=== PATIENT | female | born 1990 | race Caucasian/White ===

== ENCOUNTER 2020-08-02 14:49 | Emergency (ER) | payer OTHER, SELFPAY ==
--- NOTE | 2020-08-02 14:52 | ED.GENADULT ---
HPI - General Adult General Chief complaint: Skin/Abscess/Foreign Body Stated complaint: breast pain Time Seen by Provider: 08/02/20 14:52 Source: patient and RN notes reviewed History of Present Illness HPI narrative: Patient is a 29-year-old female who presents the urgent care with complaints of left breast pain and swelling. Patient states that it started 2 days ago and she has now been running a low-grade fever. Patient denies of any use of [id number] medication. Patient has not used a cool or heat pack to the breast. Patient states she has breast-fed in the past and never had issues with clogged duct or mastitis. Patient states that her daughter has been breast-feeding for the last 3 months without any issues. Patient states that it is more painful when pumping. No other acute complaints. No acute distress noted. Patient aware of the plan of care. Some parts of this dictation were generated by voice recognition software and may contain typographical and/or grammatical inaccuracies. Related Data Allergies Allergy/AdvReac Type Severity Reaction Status Date / Time Sulfa (Sulfonamide Allergy Unknown unknown to Verified 06/29/19 10:40 Antibiotics) pt Review of Systems Review of Systems: Narrative: CONSTITUTIONAL: Denies fever, chills, or sweats. EYES: Denies visual changes, redness, or discharge. ENT: Denies rhinorrhea, congestion, sore throat, or otalgia. CARDIOVASCULAR: Denies chest pain, palpitations, or edema. RESPIRATORY: Denies cough or dyspnea. GASTROINTESTINAL: Denies abdominal pain, nausea, vomiting, or diarrhea. GENITOURINARY: Denies dysuria or hematuria. SKIN: Reports of left breast pain and swelling. Denies rash or itching. MUSCULOSKELETAL: Denies back pain, joint pain, or myalgia. NEUROLOGIC: Denies headache, numbness, or weakness. All other systems reviewed are negative, except as documented in HPI. [facility] Family History Family History Grandparent Diabetes mellitus Family history of cardiovascular disease Mother Hypertension Carcinoma of colon Family history of malignant neoplasm of breast in first degree relative Other Depression Family history of malignant neoplasm of breast Social History Social History Smoking status: Never smoker Alcohol intake: current Comments At the time of my signature, I reviewed and agree with the nursing past medical, surgical, social, and family history. There is no relevant family history pertinent to the patient complaint. Exam Narrative: Exam Narrative: GENERAL: This is a well-nourished, well-developed patient, in no apparent distress. HEAD: normocephalic, atraumatic. EYES: PERRL. Sclera clear/white. Vision is grossly intact. EARS: External ears normal NOSE: External nose normal with no obvious nasal discharge, nares without redness, no rhinorrhea. THROAT: Mucous membranes moist NECK: Neck supple SKIN: 3 x 3 cm area of redness and mild tenderness at approximately 10:00 above the left nipple. No obvious clogged duct. Mild to moderate firmness at the 10:00 region. Good texture and turgor. NEURO: awake, alert, and oriented to person, place and time. There were no obvious focal neurologic abnormalities. EXTREMITIES: No clubbing, cyanosis, or edema. No joint tenderness, effusion, or edema noted. Course Vital Signs Vital signs: Vital Signs Temperature 98.1 F 08/02/20 14:57 Pulse Rate 93 08/02/20 14:57 Respiratory Rate 12 08/02/20 14:57 Blood Pressure 97/81 L 08/02/20 14:57 Pulse Oximetry 100 08/02/20 14:57 Temperature 98.1 F 08/02/20 14:58 Pulse Rate 93 08/02/20 14:58 Respiratory Rate 12 08/02/20 14:58 Blood Pressure 97/81 L 08/02/20 14:58 Pulse Oximetry 100 08/02/20 14:58 Reviewed Medical Decision Making MDM Narrative Medical decision making narrative: Advised the patient to complete oral antib
[2020-08-02 14:57] VITALS: BP 97/81; PULSE 93; RESP 12; TEMP 36.7; O2SAT 100
[2020-08-02 14:58] VITALS: BP 97/81; PULSE 93; RESP 12; TEMP 36.7; O2SAT 100
== END 2020-08-02 15:13 | disposition home or self-care (01) ==
PROVIDERS: Emergency Provider Nurse Practitioner Family; PCP Family Medicine
DX: N61.0 Mastitis without abscess (principal)
CPT/HCPCS: 99213; G0463

== ENCOUNTER 2023-11-16 19:03 | Emergency (ER) | payer OTHER, SELFPAY ==
[2023-11-16 19:07] VITALS: BP 124/79; PULSE 73; RESP 16; TEMP 37.1; O2SAT 100
--- NOTE | 2023-11-16 19:10 | ED.URI ---
HPI - URI/Sore Throat General Chief Complaint: Upper Respiratory Infection Stated Complaint: Sore Throat Time Seen by Provider: 11/16/23 19:10 Source: patient, RN notes reviewed and old records reviewed Mode of arrival: ambulatory Limitations: no limitations History of Present Illness HPI Narrative: patient presents with complaints of 4 days of URI symptoms. She has been taking Tylenol, ibuprofen Mucinex. She has been using hot tea with honey. She has lost her voice. 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 She denies any fever, chills, sweats. She voices no other concerns or complaints Related Data Allergies Allergy/AdvReac Type Severity Reaction Status Date / Time Sulfa (Sulfonamide Allergy Unknown unknown to Verified 11/16/23 19:22 Antibiotics) pt Review of Systems Review of Systems: All systems reviewed & are unremarkable except as noted in HPI and below Constitutional: Constitutional: Reports as per HPI, Reports no additional constitutional complaints, Reports headache(s) and Reports lethargy ENT: Reports system reviewed and no additional complaints, except as documented, Reports nasal discharge and Reports sore throat Cardiovascular: Cardiovascular: Reports no additional cardiovascular complaints Respiratory: Respiratory: Reports no additional respiratory complaints and Reports cough Gastrointestinal: Gastrointestinal: Reports no additional gastrointestinal complaints [facility] Family History Family History Grandparent Diabetes mellitus Family history of cardiovascular disease Mother Hypertension Carcinoma of colon Family history of malignant neoplasm of breast in first degree relative Other Depression Family history of malignant neoplasm of breast Social History Social History Smoking status: Never smoker Alcohol intake: current Alcohol use details: rarely Substance use: never Substance use type: does not use Do You Feel Safe in your Home?: Yes Lack of Transportation: No Lack of Food: Never True Current Housing: I Have Housing Concerned About Future Housing: No Difficulty Paying Gas/Electric Bills: No Difficulty Paying for Meds: No Currently Unemployed: No Education: Associate Degree Difficulty w/ Childcare or Family Care: No Living arrangements: with family Comments At the time of my signature, I reviewed and agree with the nursing past medical, surgical, social, and family history. There is no relevant family history pertinent to the patient complaint. Exam Const: General: cooperative, no acute distress, alert and awake Orientation/consciousness: oriented to person, oriented to place and oriented to time HENMT: Head: normal to inspection Ears: TM's normal bilaterally Mouth: Yes moist mucous membranes Throat: posterior oropharynx abnormal erythema Resp: Effort & Inspection: normal respiratory effort and able to speak in complete sentences Auscultation: clear to auscultation bilaterally, no crackles, no rales, no rhonchi and no wheezes Cardio: Palpation: normal PMI Rate: regular rate Rhythm: regular rhythm Heart sounds: S1 normal heart sound present and S2 normal heart sound present Neuro: General: oriented to person, oriented to place and oriented to time Cranial nerves: Yes CN's II-XII intact bilaterally Psych: Appearance: grossly normal Thought process: Normal thought process present Insight: Good insight present (Psych) Judgement: Good judgement present (Psych) Course Course Level of Care: Express Care Visit Vital Signs Vital signs: Vital Signs Temperature 98.8 F 11/16/23 19:07 Pulse Rate 73 11/16/23 19:07 Respiratory Rate 16 11/16/23 19:07 Blood Pressure 124/79 11/16/23 19:07 Pulse Oximetry 100 11/16/23 19:07 Temperature 98.8 F 11/16/23 19:07 Pulse Rate 73 11/16/23 19:07 Resp
[2023-11-16 19:22] LABS: EDSTREPNEGPOS1 Negative (Negative)
[2023-11-16 19:36] LABS: EDINFLUASCREEN Negative (Negative); EDINFLUBSCREEN Negative (Negative)
[2023-11-16 19:38] LABS: EDCOVIDSCREEN Negative (Negative)
[2023-11-16 19:38] LABS: EDINFLUASCREEN Negative (Negative); EDINFLUBSCREEN Negative (Negative)
== END 2023-11-16 19:33 | disposition home or self-care (01) ==
PROVIDERS: Emergency Provider Nurse Practitioner Family; PCP Family Medicine
DX: J06.9 Acute upper respiratory infection, unspecified (principal); Z20.822 Contact with and (suspected) exposure to COVID-19
CPT/HCPCS: 87081; 87635; 87804; 87880; 99213; G0463

== ENCOUNTER 2025-01-09 16:00 | Outpatient (CLI) | payer OTHER, SELFPAY ==
--- OUTSIDE RECORDS SUMMARY | 2015-05-27 18:00 | XMS_ITS | Continuity of Care Document ---
Author Organization [facility] Address [address] [place] [address] Phone Care Team Providers Care Plow Holder Name Role Phone Keyla Ward DO Unavailable Unavailable Advance Directives Directive Yes / No Effective Date File Name No Information Encounters Encounter Description Practice Location Reason(s) For Visit Diagnoses Date Provider Providers Copied on Encounter [facility], [address], [place], [place], [id number], [place] tel:[phone] [facility] No Information Ed Ramires. [address] [address], [place], [place], [id number], [place]. tel:[phone] Referring Provider: Keyla Pickering [address] [address], [place], [address]. tel:[phone] Family History Family Member Type Diagnosis Age At Onset No Information Payers Payer name Insurance type Covered republican ID Authoriza tion(s) No Information Social History Type Description Quantity Date Captured Comments Sex Female Smoking Status No Information Chief Complaint And Reason For Visit No Information Reason For Referral Reason For Referral No Information History Of Present Illness Encounter Date Complaint History Of Prese nt Illness No Information Functional Status Date Functional Assessmen t No Information Instructions Date Instruction Additional Infor mation No Information Assessments Type Assessment Date No Information Patient Care Teams Name Effective Dates (start - stop) Status Members No Information
--- NOTE | ~2025-01-09 | MM_ITS ---
EXAMINATION: MM screening josefina BI w bella HISTORY: Screening TECHNIQUE: Craniocaudal and mediolateral oblique 3-D tomosynthesis images were obtained and synthetic 2-D images were generated. CAD analysis was submitted and interpreted. COMPARISON: Baseline BREAST PARENCHYMAL COMPOSITION: The breasts are extremely dense, which lowers the sensitivity of mammography. FINDINGS: There is no evidence of suspicious mass, calcification, or architectural distortion to suggest malignancy in either breast. IMPRESSION: 1. No mammographic evidence of malignancy. 2. Recommend routine screening mammography in one year. BI-RADS Category 1: Negative Reviewed, dictated and finalized at location B. MAN
--- OUTSIDE RECORDS SUMMARY | 2025-01-09 16:50 | XMS_ITS | Clinical Summary ---
Author Organization [facility] Address [address] [place] [address] Care Team Providers Care Sprayer Insecticide Name Role Phone Theresa Donaldson MD Primary Care Provider [phone] Source Comments [facility],non-owned Affiliates and Associated Physician Practices is amultiple site organization consisting of ambulatory clinics and hospital sitesin [place], [place], [place] and [place]. This disclosure is being madepursuant to the Care Everywhere program and may not contain all information available regarding this patient. Last updated 17.[facility] Allergies Active Allergy Reactions Criticality Noted Date Comments Sulfa Drugs Unknown 08/25/2016 infant Social History Tobacco Use Types Packs/Day Years Used Date Smoking Tobacco: Never Assessed Comments Unknown Sex and Gender Information Value Date Recorded Sex Assigned at Not on file Legal Sex Female 4:05 PM CDT Gender Identity Not on file Sexual Orientation Not on file Plan of Treatment Health Maintenance Due Date Last Done Comments HIV SCREENING 2004 HEPATITIS C SCREENING 08/01/2007 DTAP/TDAP/TD VACCINES (1 - Tdap) 2008 HEPATITIS B VACCINE (1 of 3 - 19+ 3-dose series) 2008 HPV VACCINE (1 - 3-dose SCDM series) 2016 DEPRESSION SCREENING 03/08/2024 COVID-19 VACCINE ( - 2023-2 5 season) 2024 INFLUENZA VACCINE (#1) 2024 ZOSTER VACCINE (1 of 2) 08/06/2039 HIB VACCINE Aged Out No longer eligi ble based on patient's age to complete this topic MENINGOCOCCAL (Group B) VACC INE SHARED DECISION-MAKING Aged Out No longer eligibl e based on patient's age to complete this topic MENINGOCOCCAL GROUPS A/C/Y/W VACCINE Aged Out No longer eligible b ased on patient's age to complete this topic PNEUMOCOCCAL VACCINE Aged Out No long er eligible based on patient's age to complete this topic Care Teams Sprayer Insecticide Relationship Specialty Start Date End Date Theresa Donaldson MD [address] [place] [address] PCP - General Family Medicine 08/25/16
== END 2025-01-09 16:01 | disposition home or self-care (01) ==
LOC: ANHFOHIMG 16:01
PROVIDERS: PCP Family Medicine; Visit Provider Family Medicine
DX: Z12.31 Encounter for screening mammogram for malignant neoplasm of breast (principal)
CPT/HCPCS: 77063; 77067